=== PATIENT | male | born 1980 | race African-American/Black ===

== ENCOUNTER 2021-06-20 14:59 | Emergency (ER) | payer SELFPAY | END 2021-06-20 15:59 | disposition home or self-care (01) | LOC: CSHERS 14:59 | DX: Z76.0 Encounter for issue of repeat prescription (principal); I10 Essential (primary) hypertension; F17.210 Nicotine dependence, cigarettes, uncomplicated | CPT/HCPCS: 99283 ==

== ENCOUNTER 2021-09-11 07:56 | Emergency (ER) | payer SELFPAY | END 2021-09-11 08:23 | disposition home or self-care (01) | LOC: CSHERS 07:56 | DX: I10 Essential (primary) hypertension (principal); F17.210 Nicotine dependence, cigarettes, uncomplicated | CPT/HCPCS: 99283 ==

== ENCOUNTER 2021-09-29 21:17 | Emergency (ER) | payer SELFPAY ==
[2021-09-29] MEDS ORDERED: Amlodipine 5 MG TAB ONE (21:51)
== END 2021-09-29 22:42 | disposition home or self-care (01) ==
LOC: CSHERS 21:17
DX: E86.0 Dehydration (principal); I10 Essential (primary) hypertension; F17.210 Nicotine dependence, cigarettes, uncomplicated
CPT/HCPCS: 96360